=== PATIENT | female | born 1970 | race Caucasian/White ===

== ENCOUNTER → 2020-08-19 10:47 | Outpatient (CLI) | payer OTHER, SELFPAY ==
--- NOTE | ~2020-08-19 | MM_ITS ---
EXAMINATION: MM screening [facility] BI w [facility] HISTORY: Screening mammogram TECHNIQUE: Craniocaudal and mediolateral oblique 3-D tomosynthesis images were obtained and synthetic 2-D images were generated. CAD analysis was submitted and interpreted. COMPARISON: 10/05/2015, 09/22/2010 BREAST PARENCHYMAL COMPOSITION: There are scattered areas of fibroglandular density. FINDINGS: There is no evidence of suspicious mass, calcification, or architectural distortion to sugg est malignancy in either breast. There has been no suspicious interval change. IMPRESSION: 1. No mammographic evidence of malignancy. 2. Recommend routine screening mammography in one year. BI-RADS Category 1: Negative Reviewed, dictated and finalized at location A.
== END ==
PROVIDERS: Visit Provider Obstetrics & Gynecology
DX: Z12.31 Encounter for screening mammogram for malignant neoplasm of breast (principal)
CPT/HCPCS: 77063; 77067

== ENCOUNTER → 2020-09-17 14:08 | Outpatient (CLI) | payer OTHER, SELFPAY ==
--- NOTE | ~2020-09-17 | XR_ITS ---
XR knee LT 3V DATE: 09/17/2020 14:37 INDICATION: Left knee pain TECHNIQUE: [place] and standing AP and lateral views COMPARISON: None FINDINGS: No fracture or dislocation or joint effusion, periosteal reaction or bone destruction, archana drocalcinosis or radiopaque interarticular loose body. Joint spaces appear relatively preserved. IMPRESSION: No significant abnormality Reviewed, dictated and finalized at location B. IMPRESSION: No significant abnormality
== END ==
PROVIDERS: PCP Family Medicine; Visit Provider Nurse Practitioner Family
DX: M25.562 Pain in left knee (principal)
CPT/HCPCS: 73562

== ENCOUNTER 2021-09-15 01:28 | Day surgery (SDC) | payer OTHER, SELFPAY ==
[2021-09-06 09:31] VITALS: BMI 35.5
--- NOTE | 2021-09-14 15:14 | P.PNAN_ITS ---
Anes - Initial Pre Proc Eval Procedure: Operation Date: 09/15/21 07:30 Proposed Procedures p Screening Colonoscopy - Sandeep Reid MD Date/Time: 09/14/21 15:14 Surgeon: Sandeep Reid MD Pre Op Diagnosis: neoplasm screening Patient Data Age: 51 Gender: F Height: 1.63 m Weight: 94 kg Allergies Allergy/AdvReac Type Severity Reaction Status Date / Time latex Allergy Unknown Rash Verified 09/15/21 06:19 Home Medications Medication Instructions Recorded Confirmed Type levothyroxine 25 mcg tablet 25 mcg PO DAILY #90 tabs 09/06/21 Rx Patient hx anesthesia problems: none Family hx anesthesia problems: none Results Review: All pre-operative results and documents have been reviewed as part of the pre- operative evaluation. [facility] Past Medical History Medical History (Updated 09/14/21 @ 15:15 by Ray Price MD) BMI 35.0-35.9,adult BMI 38.0-38.9,adult BMI 40.0-44.9, adult Dietary counseling and surveillance (11/05/18) Fungal toenail infection Hyperlipidemia Hypothyroidism Morbid (severe) obesity due to excess calories Obesity (BMI 30-39.9) Screening for thyroid disorder Screening, lipid Surgical History Surgical History H/O: hysterectomy Family History Family History Mother Family history of diabetes mellitus in first degree relative Family history of lung cancer Father Circulation disorder of lower extremity Heart disease Sibling Obesity Other Family history of chronic obstructive pulmonary disease Social History Social History Smoking status: Never smoker Tobacco type: cigarettes Smoking end date: 02/13/09 Alcohol intake: current Alcohol use details: socially Substance use: never Substance use type: does not use Living arrangements: with family 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 Informed Consent: The patient's anesthetic plan and its attendant risks and benefits were discussed with the patient/family/POA. Questions were solicited and answers provided to the satisfaction of the patient/family/POA.
[2021-09-15 06:20] VITALS: BP 150/92; PULSE 55; RESP 20; TEMP 36.1; O2SAT 100
[2021-09-15] MEDS: LACTATED RINGERS 1,000 ML 150 ML IV CONT (06:33)
--- NOTE | 2021-09-15 07:31 | PM.HPGS ---
History of Present Illness History of Present Illness Consent: Risks, benefits, and alternatives have been discussed and questions answered. Patient agrees to proceed with procedure. Chief complaint: neoplasm screening Narrative: Edie Hawkins is a 51 year old female here for first screening colonoscopy Review of Systems Constitutional: Constitutional: Denies headache(s) and Denies weakness Eyes: Eyes: Denies blurry vision ENT: Reports Normal hearing present, Denies headache(s) and Denies neck pain Cardiovascular: Cardiovascular: Denies chest pain and Denies dyspnea Respiratory: Respiratory: Denies dyspnea Gastrointestinal: Gastrointestinal: Reports no additional gastrointestinal complaints Genitourinary: Genitourinary: Denies dysuria Musculoskeletal: Musculoskeletal: Denies neck pain Integumentary/Breasts: Skin/Breast: Denies dry skin Neurologic: Reports Normal hearing present, Denies headache(s) and Denies weakness Psychiatric: Psychiatric: Denies anxiety Endocrine: Endocrine: Denies change in body appearance Hematologic/Lymphatic: Hematologic/Lymphatic: Denies easy bleeding Allergic/Immunologic: Allergic/Immunologic: Denies urticaria PMFSH Past Medical History Medical History (Updated 09/14/21 @ 15:15 by Ray Price MD) BMI 35.0-35.9,adult BMI 38.0-38.9,adult BMI 40.0-44.9, adult Dietary counseling and surveillance (11/05/18) Fungal toenail infection Hyperlipidemia Hypothyroidism Morbid (severe) obesity due to excess calories Obesity (BMI 30-39.9) Screening for thyroid disorder Screening, lipid Surgical History Surgical History H/O: hysterectomy Family History Family History Mother Family history of diabetes mellitus in first degree relative Family history of lung cancer Father Circulation disorder of lower extremity Heart disease Sibling Obesity Other Family history of chronic obstructive pulmonary disease Social History Social History Smoking status: Never smoker Tobacco type: cigarettes Smoking end date: 02/13/09 Alcohol intake: current Alcohol use details: socially Substance use: never Substance use type: does not use Living arrangements: with family 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 Spiritual care concerns: No Meds Home Medications and Allergies Home Medications Medication Instructions Recorded Confirmed Type levothyroxine 25 mcg tablet 25 mcg PO DAILY #90 tabs 09/06/21 Rx Allergies Allergy/AdvReac Type Severity Reaction Status Date / Time latex Allergy Unknown Rash Verified 09/15/21 06:19 Vital Signs Vital Signs - 24 hr 09/15/21 06:20 Temperature 96.9 F L Pulse Rate 55 L Respiratory Rate 20 Blood Pressure 150/92 H Pulse Oximetry 100 Oxygen Delivery Room Air Exam Const: General: comfortable and no acute distress HENMT: General nose exam: Normal nares present Eyes: General: appearance normal, both eyes and all related structures Neck: Neck: no JVD Resp: Auscultation: clear to auscultation bilaterally Cardio: Rate: regular rate Rhythm: regular rhythm GI: Inspection: non-distended GI Palp: Yes Soft to palpation Skin: General skin exam: normal color Neuro: General: gait normal Speech: normal speech Extrem: General: normal to inspection Psych: Mental Status: mental status grossly normal Assessment and Plan Assessment and plan (1) Encounter for screening colonoscopy: Code(s): Z12.11 - Encounter for screening for malignant neoplasm of colon Status: Acute Assessment and Plan: colonoscopy
[2021-09-15 07:50] VITALS: BP 125/77; PULSE 63; RESP 19; O2SAT 100
[2021-09-15 08:00] VITALS: BP 128/80; PULSE 60; RESP 15; O2SAT 100
[2021-09-15 08:10] VITALS: BP 143/66; PULSE 47; RESP 16; O2SAT 100
== END 2021-09-15 08:16 | disposition home or self-care (01) ==
PROVIDERS: PCP Family Medicine; Visit Provider Internal Medicine Gastroenterology
PROC: 0DJD8ZZ Inspection of Lower Intestinal Tract, Via Natural or Artificial Opening Endoscopic (ICD-10-PCS; CPT 45378; principal; 2021-09-15 07:30)
DX: Z12.11 Encounter for screening for malignant neoplasm of colon (principal); K57.30 Diverticulosis of large intestine without perforation or abscess without bleeding; K64.8 Other hemorrhoids; E03.9 Hypothyroidism, unspecified; Z87.891 Personal history of nicotine dependence; E66.9 Obesity, unspecified; Z68.35 Body mass index [BMI] 35.0-35.9, adult
CPT/HCPCS: 45378; J2704; J7120

== ENCOUNTER 2022-01-02 12:41 | Emergency (ER) | payer OTHER, SELFPAY ==
[2022-01-02 14:49] VITALS: BP 168/93; PULSE 61; RESP 16; TEMP 37.2; O2SAT 100
--- NOTE | 2022-01-02 14:56 | ED.GENADULT ---
HPI - General Adult General Chief complaint: Upper Respiratory Infection Stated complaint: uri Time Seen by Provider: 01/02/22 14:57 Source: patient Mode of arrival: ambulatory Limitations: no limitations History of Present Illness HPI narrative: 51-year-old female patient presents to [facility] with complaints of cold symptoms that have been on off again for the last 2 weeks patient states that they have worsened since Monday. Patient denies any fevers, body aches or chills. Patient states that she did get vaccinated for COVID but denies influenza that she is aware of. Patient states she has been taking [id number] medications for her symptoms. Related Data Allergies Allergy/AdvReac Type Severity Reaction Status Date / Time latex Allergy Unknown Rash Verified 09/15/21 06:19 Review of Systems Review of Systems: CONSTITUTIONAL: Denies fever, chills, or sweats. EYES: Denies visual changes, redness, or discharge. ENT: Positive rhinorrhea, congestion, denies sore throat, or otalgia. CARDIOVASCULAR: Denies chest pain, palpitations, or edema. RESPIRATORY: Positive mild cough denies dyspnea. GASTROINTESTINAL: Denies abdominal pain, nausea, vomiting, or diarrhea. GENITOURINARY: Denies dysuria or hematuria. SKIN: Denies rash or itching. MUSCULOSKELETAL: Denies back pain, joint pain, or myalgia. NEUROLOGIC: Positive headache, denies numbness, or weakness. PSYCHIATRIC: Denies anxiety or depression. [facility] Past Medical History Medical History BMI 35.0-35.9,adult BMI 38.0-38.9,adult BMI 40.0-44.9, adult Dietary counseling and surveillance (11/05/18) Fungal toenail infection Hyperlipidemia Hypothyroidism Morbid (severe) obesity due to excess calories Obesity (BMI 30-39.9) Screening for thyroid disorder Screening, lipid Surgical History Surgical History H/O: hysterectomy Family History Family History Mother Family history of diabetes mellitus in first degree relative Family history of lung cancer Father Circulation disorder of lower extremity Heart disease Sibling Obesity Other Family history of chronic obstructive pulmonary disease Social History Social History Smoking status: Never smoker Tobacco type: cigarettes Smoking end date: 02/13/09 Alcohol intake: current Alcohol use details: socially Substance use: never Substance use type: does not use 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 There is no relevant family history pertinent to the presenting complaint. Exam Narrative: GENERAL: Well-appearing, well-nourished, and in no acute distress. HEAD: Normocephalic, atraumatic. EYES: PERRLA and EOMI. ENT: Nares with erythema and edema noted bilaterally, no rhinorrhea or epistaxis. Mucous membranes moist. Posterior pharynx no erythema, tonsillar enlargement, exudates or lesions present. NECK: Supple. No lymphadenopathy CHEST: Clear to auscultation. No respiratory distress. HEART: Regular rate and rhythm. No murmur heard. Normal peripheral pulses. ABDOMEN: Soft, nontender, nondistended, normal active bowel sounds. EXTREMITIES: Normal range of motion. No edema. SKIN: Warm, dry, no rash. NEURO: No focal deficits. Alert and oriented x3. Course Course Level of Care: Express Care Visit Reevaluation(s) Reevaluation #1: Evaluate patient with her swabs had been resulted. Notified her that everything came back negative today. Discussed with patient that since she is still having some residual affects from a viral infection we will go ahead and discharge her home today with a 24 hour antihistamine, a 5 day course of or
== END 2022-01-02 15:41 | disposition home or self-care (01) ==
PROVIDERS: Emergency Provider Nurse Practitioner Family; PCP Family Medicine
DX: J01.90 Acute sinusitis, unspecified (principal); Z20.822 Contact with and (suspected) exposure to COVID-19; Z87.891 Personal history of nicotine dependence; E78.5 Hyperlipidemia, unspecified; E03.9 Hypothyroidism, unspecified; E66.01 Morbid (severe) obesity due to excess calories; Z68.36 Body mass index [BMI] 36.0-36.9, adult
CPT/HCPCS: 87081; 87426; 87804; 87880; 99213; C9803; G0463

== ENCOUNTER 2022-04-17 09:44 | Emergency (ER) | payer OTHER, SELFPAY ==
[2022-04-17 09:54] VITALS: BP 142/76; PULSE 73; RESP 16; TEMP 36.6; O2SAT 100
--- NOTE | 2022-04-17 10:11 | ED.GENADULT ---
HPI - General Adult General Chief complaint: Upper Respiratory Infection Stated complaint: Ears/Throat/Cough Source: patient Mode of arrival: ambulatory Limitations: no limitations History of Present Illness HPI narrative: Patient presents for evaluation of sick symptoms since yesterday. Symptoms include sinus congestion, thick yellow mucopurulent discharge from the nares, sore throat, right-sided ear pain, productive cough of yellow sputum. She denies any fever, chills, nausea, vomiting, diarrhea, shortness of breath. She had influenza in January of last year and COVID in February of this year. She took an unknown [id number] sinus medication for symptoms. 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 She does not smoke. No additional complaints or concerns. Related Data Allergies Allergy/AdvReac Type Severity Reaction Status Date / Time latex Allergy Unknown Rash Verified 04/17/22 09:56 Review of Systems Review of Systems: CONSTITUTIONAL: Denies fever, chills, or sweats. EYES: Denies visual changes, redness, or discharge. ENT: Reports sinus congestion, mucopurulent discharge from the nares, sore throat, right-sided otalgia. CARDIOVASCULAR: Denies chest pain, palpitations, or edema. RESPIRATORY: Reports productive cough of yellow sputum. Denies shortness of breath. GASTROINTESTINAL: Denies abdominal pain, nausea, vomiting, or diarrhea. GENITOURINARY: Denies dysuria or hematuria. SKIN: Denies rash or itching. MUSCULOSKELETAL: Denies back pain, joint pain, or myalgia. NEUROLOGIC: Denies headache, numbness, dizziness, or weakness. PSYCHIATRIC: Denies anxiety or depression. [facility] Past Medical History Medical History BMI 35.0-35.9,adult BMI 38.0-38.9,adult BMI 40.0-44.9, adult Dietary counseling and surveillance (11/05/18) Fungal toenail infection Hyperlipidemia Hypothyroidism Morbid (severe) obesity due to excess calories Obesity (BMI 30-39.9) Screening for thyroid disorder Screening, lipid Surgical History Surgical History H/O: hysterectomy Family History Family History Mother Family history of diabetes mellitus in first degree relative Family history of lung cancer Father Circulation disorder of lower extremity Heart disease Sibling Obesity Other Family history of chronic obstructive pulmonary disease Social History Social History Smoking status: Never smoker Tobacco type: cigarettes Smoking end date: 02/13/09 Alcohol intake: current Alcohol use details: socially Substance use: never Substance use type: does not use Living arrangements: with family Occupation/Education: occupation 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 HEAD: Normocephalic, atraumatic. EYES: PERRLA and EOMI. ENT: Nares clear, no rhinorrhea or epistaxis. Mucous membranes moist. Posterior pharyngeal erythema without exudate. Uvula is midline. Bilateral TMs pearly aviles nonbulging NECK: Supple. No adenopathy or masses. No carotid bruits or JVD CHEST: Clear to auscultation. No respiratory distress. No wheezes rales or rhonchi HEART: Regular rate and rhythm. No murmur heard. Normal peripheral pulses. ABDOMEN: Soft, nontender, nondistended, normal active bowel sounds. EXTREMITIES: Normal range of motion. No edema. SKIN: Warm, dry, no rash. NEURO: No focal deficits. Alert and oriented x3. PSYCH: Normal mood and affect. Course Course Emergency Course: This is a 51-year-old female who presented for evaluation of sick symptoms. Strep and influenza were negative. We discussed waiting for throat cultu
== END 2022-04-17 10:50 | disposition home or self-care (01) ==
PROVIDERS: Emergency Provider Nurse Practitioner; PCP Family Medicine
DX: J02.9 Acute pharyngitis, unspecified (principal); Z87.891 Personal history of nicotine dependence; E78.5 Hyperlipidemia, unspecified; E03.9 Hypothyroidism, unspecified; E66.01 Morbid (severe) obesity due to excess calories; Z68.37 Body mass index [BMI] 37.0-37.9, adult
CPT/HCPCS: 87081; 87804; 87880; 99213; G0463

== ENCOUNTER 2024-09-05 13:11 | Outpatient (CLI) | payer OTHER, SELFPAY ==
--- NOTE | ~2024-09-05 | US_ITS ---
EXAMINATION: US pelvic complete w TV INDICATION: Right-sided mass on physical examination Comparison:No prior studies for comparison. TECHNIQUE: Multiple transabdominal and endovaginal sonographic images of the pelvis performed. FINDINGS: The uterus is surgically absent. The are not visualized due to bowel gas. There is no free fluid in the pelvis. There are no abnormal masses seen on either side. IMPRESSION: 1. Unremarkable pelvic ultrasound post hysterectomy. Reviewed, dictated and finalized at location A.
--- NOTE | ~2024-09-05 | MM_ITS ---
EXAMINATION: MM screening fox BI w ortiz HISTORY: Screening TECHNIQUE: Craniocaudal and mediolateral oblique 3-D tomosynthesis images were obtained and synthetic 2-D images were generated. CAD analysis was submitted and interpreted. COMPARISON: Comparison to multiple prior studies sequentially, with oldest reviewed study dated 09/22. BREAST PARENCHYMAL COMPOSITION: There are scattered areas of fibroglandular density. FINDINGS: There is no evidence of suspicious mass, calcification, or architectural distortion to sug gest malignancy in either breast. IMPRESSION: 1. No mammographic evidence of malignancy. 2. Recommend routine screening mammography in one year. BI-RADS Category 1: Negative Reviewed, dictated and finalized at location B.
--- OUTSIDE RECORDS SUMMARY | 2024-09-05 13:15 | XMS_ITS | Clinical Summary ---
Author Organization 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 Gender Identity Not on file Sexual Orientation Not on file Plan of Treatment Health Maintenance Due Date Last Done Comments Hepatitis C Virus (HCV) Screening 1970 Hepatitis B Immunization (1 of 3 - 19+ 3-dose series) 1989 Pap Smear 04/30/1991 Cervical Cancer Screening (CCS) 2000 HPV/Cotest 2000 Colonoscopy 04/30/2015 Colorectal Cancer Screening 04/30/2015 Cologuard 2020 Immunochemical Fecal Occult Blood 2020 Mammogram 2020 Pneumococcal Immunization (50+ years) (1 of 1 - PCV) 2020 Influenza Immunization (#1) 10/15/202310/16, 12/09/2019, 12/20/2018, Additional history exists SARS-COV-2 Immunization ( season) 2023 02/22/2021, 04/10/2020, 03/13/2020 Respiratory Syncytial Virus (RSV) Immunization (Adult) (1 - 1-dose 75+ series) 2045 DTaP/Tdap/Td Immunization Discontinued 12/14/2017 TdaP Immunization Completed 12/14/2017 Zoster Immunization Completed 11/10/2020, Meningococcal Immunization (ACWY) Aged Out No longer eligible based on patient's age to complete this topic Pneumococcal Immunization Combined Aged Out No longer eligible based on patient's age to complete this topic Rotavirus Immunization Aged Out No lo nger eligible based on patient's age to complete this topic
--- OUTSIDE RECORDS SUMMARY | 2024-09-05 13:15 | XMS_ITS | Data Portability ---
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 Willie Marlow. labs UTD august 2023: eye exam: spring 2023: All about eyes in [place] Dental exam: due. has been a few years. Colonoscopy: age 50. At [facility]. Dr. Sandeep Roche Not available 03/07/2024 10:06:27 Plan of Treatment Reminders Order Date Submit Date Provider Last Modified By Organization Details Last Modified Time Details Appointments ANY 15 2025 03:30P M SARAI Ibrahim Not available Not available Not available Lab CMP, serum or plasma 2024 025 [email or web address], [address], [place], [address], 07/23/2024 16:48:00 CBC w/ auto diff 2024 025 [email or web address], [address], [place], [address], 07/23/2024 16:47:59 vitamin B12 + folate, serum or blood 2024 025 [email or web address] [facility], [address], [address], [place], [address], 07/23/2024 16:48:00 lipid panel, serum 2024 025 [email or web address] [facility], [address], [address], [place], [address], 07/23/2024 16:48:00 HbA1c (hemoglob in A1c), blood 2024 025 [email or web address] [facility], [address], [address], [place], [address], 07/23/2024 16:47:59 TSH + free T4, serum 2024 025 [email or web address] [facility], [address], [address], [place], [address], 07/23/2024 16:47:59 insulin, serum 2024 025 [email or web address] [facility], [address], [address], [place], [address], 08/27/2024 15:34:33 CBC w/ auto diff 2024 025 [email or web address] [facility], [address], [address], [place], [address], 08/27/2024 15:34:34 CMP, serum or plasma 2024 025 [email or web address] [facility], [address], [address], [place], [address], 08/27/2024 15:34:34 lipid panel, serum 2024 025 [email or web address] [facility], [address], [address], [place], [address], 08/27/2024 15:34:33 TSH + free T4, serum 2024 025 [facility], [address], [address], [place], [address], 07/22/2024 16:42:16 T3, free, serum or plasma 2024 025 [email or web address] [address] [email or web address], [address], [address], [place], [address], 08/27/2024 15:34:33 thyroid peroxidas e (tpo) Ab, serum 2024 025 [email or web address], [address], [address], [place], [address], 08/27/2024 15:34:33 thyroglob ulin Ab, serum 2024 025 [place] [address] [email or web address], [address], [address], [place], [address], 08/27/2024 15:34:33 Referral None recorded. Procedures None recorded. Surgeries None recorded. Imaging None recorded. Medication Orders phentermi ne 37.5 mg tablet 2024 025 [id number], [address], [place], [id number], 08/09/2024 07:07:29 Synthroid 75 mcg tablet 2024 025 [facility], [address] [place] [address], [address], 03/07/2024 10:10:56 phentermi ne 37.5 mg tablet 2024 025 [id number], [address] [facility], [place], [place], [phone], 07/23/2024 16:19:04 Patient TargetsNo targets recorded. Patient Instructions Encounter Date Encounter Id Patient Instructions Last Modified By Organization Details Last Modified Time 03/07/2024 [id number] A healthy lifestyle: care instructions Not available 03/07/2024 10:10:51 07/23/2024 [id number] A healthy lifestyle: care instructions Not available 07/23/2024 16:47:59 Reason for Referral None Reported. Results Created Date Observation Date Name Description Value Unit Range Abnormal Flag Note LastModifiedBy Organization Detail LastModifiedTime Result Notes None recorded. Problems Name Problem SNOMED Code Status Onset Date Resolution Date Notes Provider Name and Address Organization Details Recorded Time Body mass index 30+ - obesity 872204613 Active 2024 SARAI Ibrahim Attn: Accountin g,[address] [facility], [place], [address], [place] [facility] 16:29:08 Obesity 727303078 Active 2024 SARAI Ibrahim Attn: Accountin g,[address] [place], [address], [place] [facility] 5 09:55:19 Hypothyroid ism 00712195 Active 2024 SARAI Ibrahim Attn: Accountin g,[address] [place], [address], [place] [facility] 5 09:55:27 Long-term drug therapy Active 2024 SARAI Ibrahim Attn: Accountin g,[address] [place], [address], [place] [facility] 5 09:55:46 History of hysterectom y 252477268 Active 2024 SARAI Ibrahim Attn: Accountin g,[address] [place], [address], [place] [facility] 5 09:56:44 Hyperlipide gabriela 91447555 Active 2024 SARAI Ibrahim Attn: Accountin g,[address] [place], [address], [place] [facility] 5 10:19:18 Obese class I 9802397115420 07 Active 2024 SARAI Ibrahim Attn: Cristiana gonzalez,[address] [facility], [place], [address], [facility] 5 16:28:25 Long-term current use of drug therapy 779611788 Active 2024 SARAI Ibrahim Attn: Cristiana gonzalez,[address] [facility], [place], [address], [facility] 5 07:07:30 Problem Notes None recorded. Procedures Surgical History Date Name Laterality Status Provider Name and Address Organization Details Recorded Time colonoscopy completed Ashtyn huizar MA [facility] 03/07/2024 09:37:16 Imaging Results None recorded. Procedure Notes None recorded. Medical Equipment None Reported. Allergies Allergen ID Allergen Name Allergen Category Reaction Reaction Severity Criticality Documentation Date Start Date Code Code System Note Provider Name and Address Organization Details Recorded Time 765754 latex environme nt,medica tion Not available Not available Not available 03/07/2024 58625 91 RxNorm glove s Ashtyn Zuñiga MA [facility], [facility] 5 09:34:54 Medications Name Sig Start Date Stop Date Status Note LastModified by Organization Details LastModified Time doxycycli ne hyclate 100 mg capsule TAKE 1 CAPSULE BY MOUTH TWICE DAILY FOR 10 DAYS 07/23 completed Not Available Not Available Not Available phentermi ne 37.5 mg tablet Take 1 tablet every day by oral route. 2024 active Not Available Not Available Not Avai lable amoxicill in 875 mg tablet TAKE 1 TABLET BY MOUTH EVERY 12 HOURS FOR 7 DAYS 03/07 completed Not Available Not Available Not Available estradiol 0.025 mg/24 hr weekly transderm al patch Apply 1 patch every week by transder mal route. active Not Available Not Available No t Available Synthroid 25 mcg tablet 07/23 completed Not Available Not Available Not Available Synthroid 75 mcg tablet TAKE 1 TABLET DAILY (DISCONT INUE 25 MCG DOSE) 2024 active Not Available Not Available Not Avai lable methylpre dnisolone 4 mg tablets in a dose pack FOLLOW PACKAGE DIRECTIO NS 03/07 completed Not Available Not Available Not Available betametha sone dipropion ate 0.05 % topical ointment APPLY TOPICALL Y TO THE AFFECTED AREA TWICE DAILY FOR 10 DAYS 03/07 completed Not Available Not Available Not Available fluticaso ne propionat e 50 mcg/actua tion nasal spray,duncan pension INHALE 2 SPRAYS IN EACH NOSTRIL ONCE DAILY. AFTER 1 WEEK MAY ADJUST TO 1 TO 2 SPRAYS IN EACH NOSTRIL ONCE DAILY 07/23 completed occasion al/ sudafed veryday Not Available Not Available Not Available amoxicill in 875 mg-potass ium clavulana te 125 mg tablet TAKE 1 TABLET BY MOUTH TWICE DAILY FOR 10 DAYS 03/07 completed Not Available Not Available Not Available neomycin 3.5 mg/g-poly myxin B 10,000 unit/g-de xameth 0.1 % eye oint 03/07 completed Not Available Not Available Not Available Vitamin D active otc Not Available Not Pamela ilable Not Available Vitals Date Recorded Body weight Body mass index (BMI) Systolic And Diastolic Provider Name and Address Organization Details Last Updated DateTime 03/07/2024 22680.4 g 36 kg/m2 130/84 mm[Hg] SARAI Ibrahim Attn: Accounting,[address] [place], [address], [facility] 03/07/2024 10:08:12 Date Recorded Body height Respiratory rate Oxygen saturation Oxygen saturation in Arterial blood by Pulse oximetry Heart rate Systolic And Diastolic Systolic And Diastolic Provider Name and Address Organization Details Last Updated DateTime 5 162.56 cm 18 /min 100 % 100 % 63 /min 142/82 mm[Hg] 138/80 mm[Hg] Ashtyn Zuñiga MA [facility] 09:41:53 Date Recorded Body height Body mass index (BMI) Body weight Oxygen saturation Oxygen saturation in Arterial blood by Pulse oximetry Heart rate Systolic And Diastolic Provider Name and Address Organization Details Last Updated DateTime 162.56 cm 34.8 kg/m2 80072.2 5 g 99 % 99 % 76 /min 122/80 mm[Hg] Ashtyn Zuñiga MA [facility] 16:24:26 Social History Question Answer Notes LastModified by Organizat ion Details LastModified Time Tobacco Smoking Status Never Smoker Ashtyn Zuñiga MA null, [facility] 03/07/2024 09:36:45 Do You Have An Advance Directive? Yes Information not available 03/07/2024 Are You Blind Or Do You Have Difficulty Seeing? No Glasses Information not available 03/07/2024 What Is Your Level Of Caffeine Consumption? Moderate Information not available 03/07/2024 In The 14 Days Before Symptom Onset, Have You Had Close Contact With A Laboratory-confir med COVID-19 While That Case Was Ill? No Information not available 03/07/2024 In The 14 Days Before Symptom Onset, Have You Had Close Contact With A Person Who Is Under Investigation For COVID-19 While That Person Was Ill? No Information not available 03/07/2024 Have You Been To An Area Known To Be High Risk For COVID-19? No Information not available 03/07/2024 Are You Deaf Or Do You Have Serious Difficulty Hearing? No Information not available 03/07/2024 What Type Of Diet Are You Following? REGULAR Information not available 03/07/2024 What Was The Date Of Your Most Recent Tobacco Screening? 07/23/2024 Information not available 07/23/2024 What Is Your Relationship Status? Information not available 03/07/2024 Do You Use Your Seat Belt Or Car Seat Routinely? Yes Information not available 03/07/2024 Do You Have Smoke And Carbon Monoxide Detectors In Your Home? Yes Information not available 03/07/2024 Do You Use Sunscreen Routinely? Yes Information not available 03/07/2024 Has Tobacco Cessation Counseling Been Provided? No Information not available 03/07/2024 Sex: Female Functional Status Question Answer Note LastModified by Organizat ion Details LastModified Time Do you use any illicit or recreational drugs? No Information not available 03/07/2024 Do you or have you ever used any other forms of tobacco or nicotine? No Information not available 03/07/2024 What is your level of alcohol consumption? Occasional Information not available 03/07/2024 Are you currently employed? Yes Information not available 03/07/2024 Are you able to care for yourself? Yes Information not available 03/07/2024 What is your exercise level? Occasional ocassiona Information not available 03/07/2024 Mental Status None recorded. Family History Relationship Description Onset Age of this Age Resolved Age Notes LastModified by Organization Details LastModified Time Father No current problems or disability [email or web address] Not available 07/23 16:20:08 Mother No current problems or disability [email or web address] Not available 07/23 16:20:08 Medical History No medical history recorded. Gynecological History Statement/Question Response Menses Monthly N Obstetrics History GPAL:G 3 P 3 0 0 3 Type Value Full Term 3 Induced 0 Spontaneous 0 Premature 0 Living 3 Total 3 Past Encounters Encounter ID Performer Location Encounter Start Date Encounter Closed Date Diagnosis/Indication Diagnosis SNOMED-CT Code Diagnosis ICD10 Code Diagnosis Note [id number] Noble Jimenez MD [facility] [address] [facility] [address] [address] [place] [address] 03/07/2024 09:25:53 03/07/2024 10:14:55 Body mass index 30+ - obesity 918895843 Z68.36 Start phentermin e course with follow-up in 8 weeks Obesity 643671641 E66.9 discussed healthy diet, exercise, controllin g carbohydra stevan and added sugars in the diet Hypothyroidism 96665137 E03.9 Boost 2 Synthroid 75 mcg daily based off of TSH above 5 and T4 at 0.9 on her labs provided from her gynecology office. Repeat labs in 8 weeks TSH, T4, T3 and thyroid antibodies . Adult [facility] th examination 237848490 Z00.01 New patient wellness exam completed Long-term drug therapy 829669866 Z79.891 CBC and CMP ordered for April History of hysterectomy 895408206 Z90.711 Hyperlipidemia 58300228 E78.5 Fasting lipid panel ordered for repeat in April history of LDL elevation but a great HDL. [id number] Noble Jimenez MD [facility] [employer] [address] [place] [address] 07/23/2024 16:11:53 07/29/2024 11:48:13 Obese class I 1684181039 52760 E66.811 discussed healthy diet, exercise, controllin g carbohydra stevan and added sugars in the diet Hypothyroidism 10483230 E03.9 Repeat labs due in January. Continue Synthroid 75 mcg daily Hyperlipidemia 95678211 E78.5 155 LDL, 173 triglyceri mariana. Patient would like to only make diet and lifestyle modificati ons for management . She wants to recheck lipids in January fasting and if they are still elevation she will consider starting medication Body mass index 30+ - obesity 058288382 Z68.34 BMI 34.8. Stable on phentermin e refill given for another round of treatment Long-term current use of drug therapy 995364499 Z79.899 Next labs at due in January Diabetes m ellitus screening 563785754 Z13.1 A1c screening due in January Health Concerns Section Related Observation LastModified by Organization Detai ls LastModified Time None Recorded Concern Status LastModified by Organization Details LastModified Time None Recorded Advance Directives Directive Y: Payers Insurance Date Sequence Insurance Name Policy Number Policy Garcia Covered Member ID Garcia Member ID Guarantor Name 08/09/2024 1 [facility] [id number] Edie Hawkins [id number] Edie Hawkins Notes Date Note Type Note Provider Name and Address Organization Details Recorded Time 5 text/html ThyroidReported by PatientPatient is currently taking low-dose Synthroid 25 mcg daily for hypothyroidism Patient is interested in weight loss assistance. She has taken phentermine in the past and done well without problems. She also has labs that she has brought in for review from her O[facility] 03/09/2024 04:13:29 5 text/html HyperlipidemiaReported by PatientMixed hyperlipidemia noted on recent labs. Not currently on any medication ThyroidReported by PatientPatient is currently taking low-dose Synthroid 25 mcg daily for hypothyroidism Patient has been on phentermine for weight loss support assistant. She is having some positive improvement. SARAI Ibrahim Attn: Accounting,[address] [place], [address], [place] [facility] 08/09/2024 07:08:21 OBGyn Episode No OBEpisode recorded.
--- OUTSIDE RECORDS SUMMARY | 2024-09-05 13:15 | XMS_ITS | Clinical Summary ---
Author Organization [facility] Address [facility] [place] [address] Care Team Providers Care Dumper Name Role Phone Be Velazquez MD Primary Care Provider [phone] Allergies Active Allergy Reactions Criticality Noted Date Comments Latex Rash Low 08/31/2023 Medications levothyroxine (SYNTHROID) 25 MCG tablet Take 1 tablet (25 mcg total) by mouth every morning. Active phentermine-top iramate (QSYMIA) 3.75-23 MG 24 hr capsule Take 1 capsule by mouth daily. Active pseudoephedrine (SUDAFED) 30 MG tablet Take 1 tablet (30 mg total) by mouth 2 (two) times a day. Active E-zlwikas-X-fol ic acid 1 mg (DIALYVITE) Tab Take 1 tablet by mouth daily. Active Social History Tobacco Use Types Packs/Day Years Used Date Smoking Tobacco: Former Cigarettes 0.5 10 1 990 - 2000 Smokeless Tobacco: Never Tobacco Cessation:Counseling Given: Not Answered Alcohol Use Standard Drinks/Week Comments Yes 13.3 (1 standard drink = 0.6 oz pure alcohol) Comments No Sex and Gender Information Value Date Recorded Sex Assigned at Not on file Legal Sex Female 9:42 AM CDT Gender Identity Not on file Sexual Orientation Not on file Last Filed Vital Signs Vital Sign Reading Time Taken Comments Blood Pressure 146/70 09/11/2023 2:31 PM CDT Pulse 60 09/11/2023 2:31 PM CDT Temperature 36.8 C (98.2 F) 09/11/2023 12:52 PM CDT Respiratory Rate 16 09/11/2023 2:31 PM CDT Oxygen Saturation 99% 09/11/2023 2:31 PM CDT Inhaled Oxygen Concentration - - Weight 84.8 kg (187 lb) 08/31/2023 2:08 PM CDT Height 162.6 cm (5' 4) 08/31/2023 2:08 PM CDT Body Mass Index 32.1 08/31/2023 2:08 PM CDT Plan of Treatment Health Maintenance Due Date Last Done Comments Colorectal Cancer Screening Colonoscopy (10 Years) 1970 Annual Physical 1973 Hepatitis C 1988 DTaP, Tdap and Td Vaccines ( 1 - Tdap) 1989 Hepatitis B Vaccines (1 of 3 - 19+ 3-dose series) 1989 Mammogram Screening 2010 Pneumococcal Vaccine: 50+ Ye ars (1 of 1 - PCV) 2020 Zoster Vaccines (1 of 2) 2020 COVID-19 Vaccine (2 - 2023-2 5 season) 2023 02/22/2021 Meningococcal B Vaccine Aged Out No l onger eligible based on patient's age to complete this topic Meningococcal Vaccine Aged Out No estefania manuel eligible based on patient's age to complete this topic RSV Immunizations Under 20 Months Aged Out No longer eligible based on patient's age to complete this topic Insurance [facility] Care Teams Dumper Relationship Specialty Start Date End Date Be Velazquez MD [address] [address] PCP - General FAMILY PRACTICE 09/11/23
== END 2024-09-05 13:12 | disposition home or self-care (01) ==
PROVIDERS: PCP Physician Assistant; Visit Provider Obstetrics & Gynecology
DX: Z12.31 Encounter for screening mammogram for malignant neoplasm of breast (principal); R59.1 Generalized enlarged lymph nodes; N83.201 Unspecified ovarian cyst, right side; Z90.710 Acquired absence of both cervix and uterus
CPT/HCPCS: 76830; 76856; 77063; 77067